=== PATIENT | female | born 1990 | race Caucasian/White ===

== ENCOUNTER 2018-06-14 04:00 | Inpatient (IN) ==
[2018-06-14] MEDS ORDERED: *HR* Nalbuphine 10 MG/ML AMPUL IVP PRN (04:19)
[2018-06-14] MEDS ORDERED: miSOPROStol 25 MCG TABLET VG PRN (04:19)
[2018-06-14] MEDS ORDERED: Naloxone 0.4 MG/ML INJ IVP PRN (04:19)
[2018-06-14] MEDS ORDERED: Famotidine 20 MG/2 ML VIAL IVP PRN (04:19)
[2018-06-14] MEDS ORDERED: Ondansetron 4 MG/2 ML VIAL IVP PRN (04:19)
[2018-06-14] MEDS ORDERED: Metoclopramide 10 MG/2 ML VIAL IVP PRN (04:19)
[2018-06-14] MEDS ORDERED: Ringers Solution, Lactated 1,000 ML IVC SCH (04:30)
[2018-06-14 04:57] LABS: Basophils # 0.1 K/mcL (0.0-0.2); Basophils % 0.4 %; Eosinophils # 0.2 K/mcL (0.0-0.6); Eosinophils % 1.4 %; Hematocrit 35.7 % (35.3-44.9); Hemoglobin 11.7 g/dL (11.5-15.4); Immature Granulocytes % 0.8 % (0-4); Lymphocytes # 2.8 K/mcL (0.6-4.6); Lymphocytes % 16.9 %; Mean Corpuscular HGB Conc 32.8 g/dL (31.6-35.5); Mean Corpuscular Hemoglobin 28.3 pg (28.0-33.3); Mean Corpuscular Volume 86.4 fL (83.0-100.0); Mean Platelet Volume 11.1 fL (9.4-12.4); Monocytes # 1.1 K/mcL (0.0-1.3); Monocytes % 6.7 %; Platelet Count 257 K/mcL (140-400); Red Blood Count 4.13 M/mcL (3.82-4.97); Red Cell Distribution Width 15.6 % (11.5-14.5); Segmented Neutrophils % 73.8 %
[2018-06-14 05:03] LABS: Amphetamine Screen,Urine Negative ng/mL (Cutoff=1000); Barbiturate Screen,Urine Negative ng/mL (Cutoff=200); Benzodiazepines Screen,Urine Negative ng/mL (Cutoff=200); Cannabinoid Screen,Urine Negative ng/mL (Cutoff = 50); Cocaine Screen,Urine Negative ng/mL (Cutoff= 300); Opiate Screen,Urine Negative ng/mL (Cutoff=300); Phencyclidine Screen,Urine Negative ng/mL (Cutoff=25)
--- NOTE | 2018-06-14 07:14 | OB/GYN History & Physical ---
Date of Encounter: 06/14/18 Time of Encounter: 07:08 Assessment and Plan (1) Elective induction of labor planned Current visit: Yes Status: Acute 27 y/o @ 39+4 weeks, GDMA 2, Genital herpes, GBS neg, A neg Plan: Vaginal exam done and free from genital herpetic lesions, will check FS Q2hrs and Q1hr if elevated, cytotec 25mcg given @ 4:39AM, ok for epidural if she desires, anticipate History of Present Illness HPI: Ms. Winters is a 27 year old female @ 39+4 weeks who presents to the office for IOL. No LOF, VB or ctxs, feels good FM. course significant for GDMA2 controlled with Metformin 500mg BID. She also has genital herpes on valtrex. GBS neg, A- s/p RhoGAM. Past Med Surg Social Fam HX - Past Medical History Medical history: no medical history, other Psychiatric history: no psych history - Past Surgical History Additional surgical history: d&c - Social History Smoking Status: Current every day smoker Smokeless Tobacco Status: No Alcohol use: none Drug use: none - Family History Mother Living Status: Still Living Hx Family Cardiac Disorders: Yes (HTN) Hx Family Respiratory Disorders: No Hx Family Cancer: No Hx Family GI Disorders: No Hx Family Genitourinary Disorders: No Hx Family Endocrine Disorder: No Hx Family Musculoskeletal Disorders: No Hx Family Neuromuscular Disorders: No Hx Family Neurologic Disorders: No Hx Family HEENT Disorders: No Hx Family Autoimmune Disorders: No Hx Family Reproductive Disorders: No Hx Family Psychosocial Disorders: No Hx Family Medical Disorders: No Obstetrical History - Pregnancies : 5 Para: 3 Medications and Allergies Metformin HCl 500 mg PO BID 06/14/18 [History] Allergy/AdvReac Type Severity Reaction Status Date / Time No Known Allergies Allergy Verified 10/09/16 19:57 Review of System OB All systems PM: reviewed and no additional remarkable complaints except as stated Exam - Vital Signs Vital signs: Initial Vital Signs Temp Pulse Resp BP 98.2 F 105 15 118/82 06/14/18 04:30 06/14/18 04:30 06/14/18 04:30 06/14/18 04:30 - Constitutional Constitutional: well developed - HEENT HEENT: PERRL - Neck Neck exam: full ROM - Lungs Respiratory exam: CTAB - Cardiovascular Cardiovascular exam: RRR - Abdomen Abdomen: Present: gravid - Cervix Dilation: 1 Effacement: 70 Results Result Diagrams: 06/14/18 04:30 Abnormal lab results WBC 16.2 K/mcL (4.3-11.1) H 06/14/18 04:30 RDW 15.6 % (11.5-14.5) H 06/14/18 04:30 Neutrophils # 12.0 K/mcL (1.6-8.9) H 06/14/18 04:30 All other labs normal. - VTE Reasons for not Prescribing Prophylaxis: Treatment not Indicated - Low risk for VTE
[2018-06-14] MEDS ORDERED: 0.9 % Sodium Chloride 1,000 ML IVC SCH (09:15)
[2018-06-14] MEDS ORDERED: Oxytocin 20 units/ LR 1000 mL 20 UNIT/1,000 ML BAG IVC SCH (09:15)
--- NOTE | 2018-06-14 09:27 | OB Labor Progress Note ---
Date of Encounter: 06/14/18 Time of Encounter: 09:27 Labor Progress Note - Subjective Subjective: patient is doing, her cytotec is due - Vital Signs Vital Signs: VSS - Cervix Cervix: 1/70% - Heart Tones Heart Tones: 145/mod/yin/+accels, no decels - [place]: Q1 - Interventions Interventions: since patient is in tachysystole, will start pitocin instead of another dose of cytotec, ok for epidural if she desires, anticipate
[2018-06-14] MEDS ORDERED: Lidocaine -MPF 1% 5 ML AMPUL ONE (16:12)
[2018-06-14] MEDS ORDERED: Epidural Premix (fent/bupiv) 110 ML EP ONE (16:14)
[2018-06-14] MEDS ORDERED: Epidural Premix (fent/bupiv) 110 ML EP SCH (16:15)
--- NOTE | 2018-06-14 16:17 | OB Labor Progress Note ---
Date of Encounter: 06/14/18 Time of Encounter: 16:15 Labor Progress Note - Subjective Subjective: Pt feeling some contractions - Cervix Cervix: 4/80/-2 - Heart Tones Heart Tones: 135/moderate/positive accelerations/negative decelerations - Plan Physician notified: Yes Physician notified details: Dr. Reynoso updated be a text message Plan: Continue current management Pitocin per policy Nubain and epidural as desired Anticipate
--- NOTE | 2018-06-14 17:07 | OB Labor Progress Note ---
Date of Encounter: 06/14/18 Time of Encounter: 17:04 Labor Progress Note - Subjective Subjective: patient is doing well s/p vaginal delivery - Vital Signs Vital Signs: VSS - Cervix Cervix: 5/80/0 - Heart Tones Heart Tones: 140/mod/yin/+accels, no decels - Icard Icard: Q 1-3 - Interventions Interventions: patient AROM'ed with blood tinged fluid, IUPC placed but shortly fell out when patient moved (it got caught around her leg), pitocin @ 14, fingersticks normal, anticipate
--- NOTE | 2018-06-14 17:10 | Anesthesia Evaluation PreOp ---
Date of Encounter: 06/14/18 Time of Encounter: 16:10 - Past History Planned Operation: FAUZIA Cardiac History: Denies any Significant Hx Pulmonary History: Denies Any Significant HX HARVESTING SUPERVISOR History: Denies Any Significant HX Other Medical History: Denies Any Significant HX Anesthesia History: No Prior Anesthetic Complications : Yes Test: Positive Alcohol Use: none Drug use: none Medications and Allergies Metformin HCl 500 mg PO BID 06/14/18 [History] Valtrex 500 mg PO DAILY 06/14/18 [History] Allergy/AdvReac Type Severity Reaction Status Date / Time No Known Allergies Allergy Verified 10/09/16 19:57 - Meds/Allergy Pre-op Review Medications Reviewed: Yes Allergies Reviewed: Yes Beta Blockers on Current Med List: No Anesthesia Results - Labs 06/14/18 04:30 Anesthesia Exam Height: 1.57 Weight: 82 NPO (# of Hours): mn Pain Scale: 4 - HEENT Pupil (Motor): Pupils equal Mallampati: II Teeth: Normal Oral Opening: Greater than 3 - HARVESTING SUPERVISOR LOC: Oriented HARVESTING SUPERVISOR Motor: Normal RUE, Normal LUE, Normal RLE, Normal LLE, Normal Face HARVESTING SUPERVISOR Sensory: Normal: RUE, LUE, RLE, LLE, Face - Cardiac Rhythm: Regular Murmur: None JVD: No Carotid Bruit: No - Pulmonary Breath Sounds: bilateral Clear Respiratory Effort: Symmetrical Anesthesia Assess/Plan ASA Score: 2 Level of consciousness: Cooperative Anesthetic Plan: Epidural Monitoring Plan: Standard Monitors
--- NOTE | 2018-06-14 17:13 | Anesthesia Procedures ---
Date of Encounter: 06/14/18 Time of Encounter: 16:10 Procedures: Anesthesia - Epidural/Spinal Patient ID/Chart reviewed: Yes Patient examined: Yes OB Eval: Gestational age: 39.4 OB Eval: : 5 OB Eval: Hx Para: 2 OB Eval: Dilated at (cm): 4 OB Eval: Contractions: Non-stressed pattern Consent Obtained: Yes Site Prep: Aseptic Technique, Sterile prep and drape, Povidone-Iodine 1% Patient position: upright Amount of Local Anesthetic used: 3 Touhy Needle Gauge: 18 Touhy Needle Depth (cm): 6 Catheter Depth at Skin (cm): 8 Test Dose (1.5% Lido + Epi): Volume given (mls): 3 Test Dose Result: Negative Infusion Rate (mls/hr): [address]: Tegaderm, Tape Interspace Used: L4-L5 Loss of Resistance (LEA): Yes Blood: No CSF: No Paresthesia: No Vitals + FHT's: stable throughout see nursing notes
--- NOTE | 2018-06-14 19:34 | OB Labor Progress Note ---
Date of Encounter: 06/14/18 Time of Encounter: 19:32 Labor Progress Note - Subjective Subjective: patient is comfortable - Vital Signs Vital Signs: VSS - Cervix Cervix: 5cm/80% - Heart Tones Heart Tones: 155/mod yin/+accels, no rec yin decels - [place]: irreg (IUPC in place) - Interventions Interventions: if yni decels become recurrent, will do amnioinfusion, anticipate , pitocin @ 22
--- NOTE | 2018-06-14 20:56 | OB Labor Progress Note ---
Date of Encounter: 06/14/18 Time of Encounter: 20:53 Labor Progress Note - Subjective Subjective: Patient is doing well - Vital Signs Vital Signs: VSS - Cervix Cervix: anterior lip/+1 - Heart Tones Heart Tones: 145/mod yin/+accels, non rec yin decels - [place]: irreg - Interventions Interventions: anticipate , amnioinfusion running
--- NOTE | 2018-06-14 21:58 | OB/GYN Procedure Note ---
Delivery - Delivery Date: 06/14/18 Provider: Brenda Reynoso Intrapartum events: none Delivery induction: misoprostol Delivery augmentation: rupture of membranes, pitocin Delivery monitor: external FHT, external uterine, internal uterine Anesthesia: epidural Quantitated Blood Loss: 200 - Repair Episiotomy: none Laceration Description: Periurethral - Complications Delivery complications: none - Disposition Mom disposition: stable in LDR disposition: stable in LDR - Comments Comments: Johanna is a 27 y/o now who delivered a viable male @ 2130hrs. delivered SHAHAB with nuchal cord x 2. Weight 3205g. Infant placed on Mom's chest before clamping and cutting the cord. Placenta delivered @ 2135hrs, EBL 20 0ml, right periurethral laceration repaired with 4-0 vicryl. Mother and infant stable.
[2018-06-15] MEDS ORDERED: Oxytocin 20 units/ LR 1000 mL 20 UNIT/1,000 ML BAG IVC SCH (00:51)
[2018-06-15] MEDS ORDERED: Measles/Mumps/Rubella Vacc 0.5 ML VIAL SQ PRN (00:51)
[2018-06-15] MEDS: Ibuprofen 600 MG TABLET PO PRN ×2 (06:49→18:25)
[2018-06-15 07:46] LABS: Basophils % 0.2 %; Eosinophils # 0.2 K/mcL (0.0-0.6); Hematocrit 33.2 % (35.3-44.9); Hemoglobin 10.8 g/dL (11.5-15.4); Immature Granulocytes % 0.8 % (0-4); Lymphocytes # 2.7 K/mcL (0.6-4.6); Lymphocytes % 16.1 %; Mean Corpuscular HGB Conc 32.5 g/dL (31.6-35.5); Mean Corpuscular Hemoglobin 28.5 pg (28.0-33.3); Mean Corpuscular Volume 87.6 fL (83.0-100.0); Mean Platelet Volume 11.2 fL (9.4-12.4); Monocytes % 5.7 %; Neutrophils # 12.6 K/mcL (1.6-8.9); Platelet Count 223 K/mcL (140-400); Red Blood Count 3.79 M/mcL (3.82-4.97); Red Cell Distribution Width 15.5 % (11.5-14.5); Segmented Neutrophils % 76.2 %
[2018-06-15] MEDS ORDERED: Prenatal Vit/FA 1 EACH TABLET PO SCH (09:00)
--- NOTE | 2018-06-15 09:30 | Discharge Summary ---
Date of Encounter: 06/15/18 Time of Encounter: 09:27 - Discharge Diagnosis (1) Vaginal delivery Priority: Primary Status: Acute Comments: Patient meeting day one milestones. Pain well-controlled with prescribed medications. Voiding without difficulty, tolerating regular diet, bleeding light. No bowel movement yet. Nexplanon and Depo-Provera offered and patient declined both prior to discharge Anticipate discharge this evening (2) Laceration of periurethral tissue with delivery Priority: Secondary Status: Acute Comments: Dermoplast, ice pack, Motrin as needed for discomfort (3) Gestational diabetes mellitus (GDM) controlled on oral hypoglycemic drug Priority: Secondary Status: Acute Comments: Patient will need a 2 hour glucose tolerance test between 4 and 12 weeks She was made aware of this need for testing and verbalizes understanding. Qualifiers: Trimester: unspecified trimester Qualified Code(s): O24.415 - Gestational diabetes mellitus in , controlled by oral hypoglycemic drugs - Discharge Medications Prescriptions: New Ibuprofen [Motrin] 600 mg PO Q6HR PRN #60 tablet PRN Reason: Cramping Docusate [Colace] 100 mg PO BID capsule Discontinued Metformin HCl 500 mg PO BID Valtrex 500 mg PO DAILY Home Medications: Docusate [Colace] 100 mg PO BID capsule 06/15/18 [Rx] Ibuprofen [Motrin] 600 mg PO Q6HR PRN #60 tablet 06/15/18 [Rx] Allergies/Adverse Reactions: Allergy/AdvReac Type Severity Reaction Status Date / Time No Known Allergies Allergy Verified 10/09/16 19:57 Data Procedures and tests throughout hospitalization: Laboratory Tests 06/14/18 06/14/18 06/14/18 04:30 04:30 04:30 WBC 16.2 H RBC 4.13 Hgb 11.7 Hct 35.7 MCV 86.4 MCH 28.3 MCHC 32.8 RDW 15.6 H Plt Count 257 MPV 11.1 Immature Gran % 0.8 Seg Neutrophils % 73.8 Lymphocytes % 16.9 Monocytes % 6.7 Eosinophils % 1.4 Basophils % 0.4 Neutrophils # 12.0 H Lymphocytes # 2.8 Monocytes # 1.1 Eosinophils # 0.2 Basophils # 0.1 POC Glucose Urine Opiates Screen Negative Ur Barbiturates Screen Negative Ur Phencyclidine Scrn Negative Ur Amphetamines Screen Negative U Benzodiazepines Scrn Negative Urine Cocaine Screen Negative U Marijuana (THC) Screen Negative Ur Drug Screen Interp See Below Hep Bs Antigen Nonreactive 06/14/18 06/14/18 06/14/18 08:13 10:09 12:22 WBC RBC Hgb Hct MCV MCH MCHC RDW Plt Count MPV Immature Gran % Seg Neutrophils % Lymphocytes % Monocytes % Eosinophils % Basophils % Neutrophils # Lymphocytes # Monocytes # Eosinophils # Basophils # POC Glucose 102 H 83 100 H Urine Opiates Screen Ur Barbiturates Screen Ur Phencyclidine Scrn Ur Amphetamines Screen U Benzodiazepines Scrn Urine Cocaine Screen U Marijuana (THC) Screen Ur Drug Screen Interp Hep Bs Antigen 06/14/18 06/14/18 06/14/18 14:14 16:25 18:28 WBC RBC Hgb Hct MCV MCH MCHC RDW Plt Count MPV Immature Gran % Seg Neutrophils % Lymphocytes % Monocytes % Eosinophils % Basophils % Neutrophils # Lymphocytes # Monocytes # Eosinophils # Basophils # POC Glucose 96 82 153 H Urine Opiates Screen Ur Barbiturates Screen Ur Phencyclidine Scrn Ur Amphetamines Screen U Benzodiazepines Scrn Urine Cocaine Screen U Marijuana (THC) Screen Ur Drug Screen Interp Hep Bs Antigen 06/14/18 06/15/18 20:33 07:24 WBC 16.6 H RBC 3.79 L Hgb 10.8 L Hct 33.2 L MCV 87.6 MCH 28.5 MCHC 32.5 RDW 15.5 H Plt Count 223 MPV 11.2 Immature Gran % 0.8 Seg Neutrophils % 76.2 Lymphocytes % 16.1 Monocytes % 5.7 Eosinophils % 1.0 Basophils % 0.2 Neutrophils # 12.6 H Lymphocytes # 2.7 Monocytes # 1.0 Eosinophils # 0.2 Basophils # 0.0 POC Glucose 72 Urine Opiates Screen Ur Barbiturates Screen Ur Phencyclidine Scrn Ur Amphetamines Screen U Benzodiazepines Scrn Urine Cocaine Screen U Marijuana (THC) Screen Ur Drug Screen Interp Hep Bs Antigen Labs on day of discharge: Labs from last 24 hours 06/15/18 06/14/18 06/14/18 07:24 20:33 18:28 WBC 16.6 H RBC 3.79 L Hgb 10.8 L Hct 33.2 L MCV 87.6 MCH 28.5 MCHC 32.5 RDW 15.5 H Plt Count 223 MPV 11.2 Immature Gran % 0.8 Seg Neutrophils % 76.2 Lymphocytes % 16.1 Monocytes % 5.7 Eosinophils % 1.0 Basophils % 0.2 Neutrophils # 12.6 H Lymphocytes # 2.7 Monocytes # 1.0 Eosinophils # 0.2 Basophils # 0.0 POC Glucose 72 153 H 06/14/18 06/14/18 06/14/18 16:25 14:14 12:22 WBC RBC Hgb Hct MCV MCH MCHC RDW Plt Count MPV Immature Gran % Seg Neutrophils % Lymphocytes % Monocytes % Eosinophils % Basophils % Neutrophils # Lymphocytes # Monocytes # Eosinophils # Basophils # POC Glucose 82 96 100 H 06/14/18 06/14/18 10:09 08:13 WBC RBC Hgb Hct MCV MCH MCHC RDW Plt Count MPV Immature Gran % Seg Neutrophils % Lymphocytes % Monocytes % Eosinophils % Basophils % Neutrophils # Lymphocytes # Monocytes # Eosinophils # Basophils # POC Glucose 83 102 H Date of admission: 06/14/18 04:12 Primary care physician: Amy Quiroz CNP Consults: 06/15/18 00:51 Consult to Neurodiagnostic Technician [CONS] Routine Comment: Vaginal delivery, consult needed Discharging clinician: Lydia iWllard Anticipated date of discharge: 06/15/18 - Patient Status Disposition: Home, Self-Care Condition: Good Functional capacity at discharge: independent ambulation Overall status at discharge: patient is progressing back to baseline - Discharge Instructions Follow Up With: Amy Quiroz CNP [Primary Care Provider] - - Diet and Activity Activity: resume usual activities as tolerated Diet: regular diet Hospital Course Reason for admission: induction of labor Delivery: Episiotomy: none Laceration: other (periurethral) Other procedures: none complications: none Discharge diagnosis: IUP at term delivered [place] baby: male Time Attestation: Total time spent providing and/or coordinating discharge services: Time Spent: Less than 30 minutes Exam - Constitutional Vitals: Temp Pulse Resp BP Pulse Ox 98.3 F 68 14 118/79 94 06/15/18 09:02 06/15/18 09:02 06/15/18 09:02 06/15/18 09:02 06/15/18 02:45 General appearance IM: A&O X 3, pleasant, no acute distress, answers questions appropriately - Respiratory Respiratory exam: Present: CTAB - Cardiovascular Cardiovascular exam IM: Present: RRR, +S1, +S2 - GI/Abdominal GI/Abdominal exam IM: soft - Rectal Rectal exam: deferred - External exam: normal external exam Uterine Tone: Firm Uterus Position: At Umbilicus, Midline - Extremities Exam Extremities exam IM: Present: full ROM, normal capillary refill, normal inspection - Neurological Exam Neurological exam: alert, normal gait, oriented X3
[2018-06-15] MEDS ORDERED: Rho Immune Globulin 1,500 UNIT SYRINGE IM ONE (16:04)
[2018-06-15] MEDS ORDERED: Benzocaine/Menthol 56 GM AEROSOL SPRAY TP ONE (20:25)
[2018-06-15 21:10] VITALS: BP 116/76
== END 2018-06-15 22:54 | disposition home or self-care (01) | DRG 560 ==
LOC: 1NENULAB 04:12 → 1NENUOBS 06-15 00:57
PROVIDERS: ADMIT Student in an Organized Health Care Education/Training Program; ATTEND Student in an Organized Health Care Education/Training Program

== ENCOUNTER 2018-12-13 06:15 | Observation (INO) ==
[2018-12-13] MEDS ORDERED: 0.9 % Sodium Chloride 1,000 ML IVC ONE (07:03)
[2018-12-13] MEDS ORDERED: Ketorolac 30 MG/ML VIAL IVP ONE (07:03)
[2018-12-13] MEDS ORDERED: Ondansetron ODT 4 MG TAB.RAPDIS SL ONE (07:03)
[2018-12-13 07:23] LABS: Basophils # 0.1 K/mcL (0.0-0.2); Basophils % 0.6 %; Bilirubin,Urine Small (Negative); Blood,Urine Moderate (Negative); Clarity,Urine Clear (Clear); Color,Urine Dark Yellow (Yellow); Eosinophils # 0.5 K/mcL (0.0-0.6); Eosinophils % 3.8 %; Glucose,Urine (UA) Normal (Normal); Hematocrit 34.4 % (35.3-44.9); Hemoglobin 10.9 g/dL (11.5-15.4); Immature Granulocytes % 0.5 % (0-4); Ketones,Urine Negative (Negative); Leukocyte Esterase,Urine Negative (Negative); Lymphocytes # 2.3 K/mcL (0.6-4.6); Lymphocytes % 19.9 %; Mean Corpuscular HGB Conc 31.7 g/dL (31.6-35.5); Mean Corpuscular Hemoglobin 25.3 pg (28.0-33.3); Mean Platelet Volume 10.1 fL (9.4-12.4); Monocytes # 0.7 K/mcL (0.0-1.3); Monocytes % 5.5 %; Neutrophils # 8.2 K/mcL (1.6-8.9); Nitrite,Urine Negative (Negative); Platelet Count 373 K/mcL (140-400); Protein,Urine Trace mg/dL (Neg-Trace); Red Cell Distribution Width 15.9 % (11.5-14.5); Segmented Neutrophils % 69.7 %; Specific Gravity,Urine > 1.030 (1.010-1.025); Urobilinogen,Urine Normal (Normal); White Blood Count 11.7 K/mcL (4.3-11.1)
[2018-12-13 07:44] LABS: Alanine Aminotransferase 12 Units/L (7-52); Albumin 4.3 g/dL (3.5-5.7); Albumin/Globulin Ratio 1.7 (1.1-2.2); Alkaline Phosphatase 73 Units/L (34-104); Aspartate Amino Transferase 10 Units/L (13-39); BUN/Creatinine Ratio 21 (6-26); Bilirubin,Direct 0.1 mg/dL (0.0-0.2); Bilirubin,Indirect 0.1 mg/dL (0.0-1.2); Bilirubin,Total 0.2 mg/dL (0.3-1.0); Blood Urea Nitrogen 17 mg/dL (6-20); Calcium 9.1 mg/dL (8.6-10.3); Carbon Dioxide 23 mEq/L (23-29); Chloride 108 mEq/L (98-107); Globulin 2.6 g/dL (2.4-3.5); Glucose 121 mg/dL (70-105); Lipase 18 Units/L (11-82); Osmolality,Calculated 285 (280-300); Potassium 3.8 mEq/L (3.5-5.1); Sodium 136 mEq/L (136-145); Total Protein 6.9 g/dL (6.4-8.9); eGFR For African Americans > 60 (> 60); eGFR For Non-African Americans > 60 (> 60)
[2018-12-13 07:46] LABS: Bacteria,Urine Moderate per hpf (None-Few); Mucus,Urine Few (Few); RBC,Urine 30-50 per hpf (0-3); Squamous Epithelial Cell,Urine Moderate per lpf (None-Few); WBC,Urine 0-3 per hpf (0-3)
[2018-12-13] MEDS ORDERED: *HR* FentaNYL (PF) 100 MCG/2 ML VIAL ONE ×2 (14:40→15:37)
[2018-12-13] MEDS ORDERED: *HR* Midazolam HCl 2 MG/2 ML VIAL ONE (14:40)
[2018-12-13] MEDS ORDERED: *HR* Propofol 200 MG/20 ML VIAL IVP ONE (14:41)
[2018-12-13] MEDS ORDERED: *HR* Succinylcholine 200 MG/10 ML VIAL IVP ONE (14:44)
[2018-12-13] MEDS ORDERED: *HR* Rocuronium Bromide 50 MG/5 ML VIAL ONE (14:44)
[2018-12-13] MEDS ORDERED: Lidocaine HCL 4 ML Topical Solution (Laryng-O-Jet Kit Sterile Pak) TP ONE (14:45)
[2018-12-13] MEDS ORDERED: Albuterol 2.5 MG/3 ML NEBULIZER IH ONE (14:50)
[2018-12-13] MEDS ORDERED: *HR* HYDROmorphone (PF) 1 MG/ML SYRINGE IVP PRN (14:51)
[2018-12-13] MEDS ORDERED: *HR* Promethazine 25 MG/ML VIAL IVP PRN (14:51)
[2018-12-13] MEDS ORDERED: Ondansetron 4 MG/2 ML VIAL IVP ONE (14:51)
[2018-12-13] MEDS ORDERED: *HR* OxyCODONE Immed Rel 5 MG TABLET PO PRN (14:51)
[2018-12-13] MEDS ORDERED: ceFAZolin 2,000 MG in Water for inj. (sterile) 20 ML IVP ONE (14:55)
[2018-12-13] MEDS ORDERED: Ondansetron 4 MG/2 ML VIAL ONE (14:56)
[2018-12-13] MEDS ORDERED: Dexamethasone 4 MG/ML VIAL ONE (14:56)
[2018-12-13] MEDS ORDERED: Neostigmine Methylsulfate 3 MG/3 ML SYRINGE ONE (15:34)
[2018-12-13] MEDS ORDERED: Ketorolac 30 MG/ML VIAL ONE (15:41)
[2018-12-13] MEDS ORDERED: *HR* HYDROMORPHONE 2 MG/ML VIAL ONE (15:42)
[2018-12-13] MEDS ORDERED: *HR* OxyCODONE/APAP 5/325 TABLET PO PRN (17:09)
[2018-12-13] MEDS ORDERED: Ketorolac 15 MG/ML VIAL IVP SCH (18:00)
[2018-12-13 18:34] VITALS: BP 126/85
== END 2018-12-13 18:51 | disposition home or self-care (01) ==
LOC: EMEROOARM 06:15 → 3ANU 06:15
PROVIDERS: ADMIT Surgery; ATTEND Surgery

== ENCOUNTER 2019-10-17 15:41 | Observation (INO) | END 2019-10-17 18:00 | disposition home or self-care (01) | LOC: 1NENULAB | PROVIDERS: ADMIT Obstetrics & Gynecology; ATTEND Obstetrics & Gynecology ==

== ENCOUNTER 2019-10-24 16:00 | Observation (INO) | END 2019-10-24 16:10 | disposition home or self-care (01) | LOC: 1NENULAB | PROVIDERS: ADMIT Obstetrics & Gynecology; ATTEND Obstetrics & Gynecology ==

== ENCOUNTER 2019-11-18 09:03 | Inpatient (IN) ==
[2019-11-18] MEDS ORDERED: Lidocaine 1% 20 ML MDV INFILT PRN (09:24)
[2019-11-18] MEDS ORDERED: Metoclopramide 10 MG/2 ML VIAL IVP PRN (09:24)
[2019-11-18] MEDS ORDERED: Ondansetron 4 MG/2 ML VIAL IVP PRN (09:24)
[2019-11-18] MEDS ORDERED: Naloxone 0.4 MG/ML INJ IVP PRN (09:24)
[2019-11-18] MEDS ORDERED: *HR* FentaNYL (PF) 100 MCG/2 ML VIAL IVP PRN (09:24)
[2019-11-18] MEDS ORDERED: Azithromycin 500 MG in 0.9 % Sodium Chloride 250 ML IVPB ONE (09:24)
[2019-11-18] MEDS ORDERED: Famotidine 20 MG/2 ML VIAL IVP PRN (09:24)
[2019-11-18] MEDS ORDERED: miSOPROStoL 25 MCG TABLET PO PRN (09:27)
[2019-11-18] MEDS ORDERED: Ringers Solution, Lactated 1,000 ML IVC SCH (09:30)
[2019-11-18 09:42] LABS: Basophils % 0.3 %; Eosinophils # 0.1 K/mcL (0.0-0.6); Eosinophils % 0.8 %; Hematocrit 38.1 % (35.3-44.9); Hemoglobin 12.9 g/dL (11.5-15.4); Immature Granulocytes % 0.8 % (0-4); Lymphocytes # 1.7 K/mcL (0.6-4.6); Lymphocytes % 13.4 %; Mean Corpuscular HGB Conc 33.9 g/dL (31.6-35.5); Mean Corpuscular Hemoglobin 31.5 pg (28.0-33.3); Mean Corpuscular Volume 93.2 fL (83.0-100.0); Mean Platelet Volume 10.6 fL (9.4-12.4); Monocytes # 0.7 K/mcL (0.0-1.3); Monocytes % 5.1 %; Neutrophils # 10.3 K/mcL (1.6-8.9); Platelet Count 214 K/mcL (140-400); Red Blood Count 4.09 M/mcL (3.82-4.97); Red Cell Distribution Width 13.4 % (11.5-14.5); Segmented Neutrophils % 79.6 %; White Blood Count 12.9 K/mcL (4.3-11.1)
[2019-11-18 10:04] LABS: Amphetamine Screen,Urine Negative ng/mL (Cutoff=1000); Barbiturate Screen,Urine Negative ng/mL (Cutoff=200); Benzodiazepines Screen,Urine Negative ng/mL (Cutoff=200); Cannabinoid Screen,Urine Negative ng/mL (Cutoff = 50); Cocaine Screen,Urine Negative ng/mL (Cutoff= 300); Opiate Screen,Urine Negative ng/mL (Cutoff=300); Phencyclidine Screen,Urine Negative ng/mL (Cutoff=25)
[2019-11-18] MEDS ORDERED: EPHEDrine 50 MG/ML VIAL IVP PRN (11:32)
[2019-11-18] MEDS ORDERED: Epidural Premix (fent/bupiv) 110 ML EP SCH (11:45)
[2019-11-18] MEDS ORDERED: Oxytocin 20 units/ LR 1000 mL 20 UNIT/1,000 ML BAG IVC SCH ×2 (14:15→18:30)
[2019-11-18] MEDS ORDERED: Rho Immune Globulin 1,500 UNIT SYRINGE IM PRN (18:19)
[2019-11-18] MEDS ORDERED: Measles/Mumps/Rubella Vacc 0.5 ML VIAL SQ PRN (18:19)
[2019-11-18] MEDS ORDERED: Acetaminophen 325 MG TABLET PO PRN (18:19)
[2019-11-19] MEDS: Ibuprofen 600 MG TABLET PO PRN ×2 (02:16→08:51)
[2019-11-19 05:07] LABS: Basophils # 0.1 K/mcL (0.0-0.2); Basophils % 0.4 %; Eosinophils # 0.1 K/mcL (0.0-0.6); Hematocrit 35.5 % (35.3-44.9); Hemoglobin 11.9 g/dL (11.5-15.4); Immature Granulocytes % 0.9 % (0-4); Lymphocytes # 2.1 K/mcL (0.6-4.6); Lymphocytes % 16.7 %; Mean Corpuscular HGB Conc 33.5 g/dL (31.6-35.5); Mean Corpuscular Hemoglobin 32.1 pg (28.0-33.3); Mean Corpuscular Volume 95.7 fL (83.0-100.0); Mean Platelet Volume 10.7 fL (9.4-12.4); Monocytes # 0.8 K/mcL (0.0-1.3); Neutrophils # 9.6 K/mcL (1.6-8.9); Platelet Count 198 K/mcL (140-400); Red Blood Count 3.71 M/mcL (3.82-4.97); Red Cell Distribution Width 13.4 % (11.5-14.5); White Blood Count 12.7 K/mcL (4.3-11.1)
[2019-11-19] MEDS ORDERED: Prenatal Vit/FA 1 EACH TABLET PO SCH (09:00)
[2019-11-19 16:02] VITALS: BP 119/79
== END 2019-11-19 19:07 | disposition home or self-care (01) | DRG 560 ==
LOC: 1NENULAB 09:03 → 1NENUOBS 19:55
PROVIDERS: ADMIT Student in an Organized Health Care Education/Training Program; ATTEND Student in an Organized Health Care Education/Training Program

== ENCOUNTER 2021-07-01 07:59 | Inpatient (IN) ==
[2021-07-01] MEDS ORDERED: Famotidine 20 MG/2 ML VIAL IVP PRN (08:10)
[2021-07-01] MEDS ORDERED: Metoclopramide 10 MG/2 ML VIAL IVP PRN ×2 (08:10→18:29)
[2021-07-01] MEDS ORDERED: miSOPROStoL 25 MCG TABLET PO PRN (08:10)
[2021-07-01] MEDS ORDERED: Naloxone 0.4 MG/ML INJ IVP PRN ×2 (08:10→14:33)
[2021-07-01] MEDS ORDERED: *HR* Nalbuphine 10 MG/ML AMPUL IV PRN (08:10)
[2021-07-01] MEDS ORDERED: Ondansetron 4 MG/2 ML VIAL IVP PRN ×3 (08:16→18:29)
[2021-07-01] MEDS ORDERED: Lidocaine -MPF 1% 5 ML AMPUL INFILT PRN (08:16)
[2021-07-01 08:51] LABS: Basophils # 0.1 K/mcL (0.0-0.2); Basophils % 0.4 %; Eosinophils # 0.2 K/mcL (0.0-0.6); Eosinophils % 1.7 %; Hematocrit 34.1 % (35.3-44.9); Hemoglobin 11.3 g/dL (11.5-15.4); Immature Granulocytes % 0.8 % (0-4); Lymphocytes # 2.2 K/mcL (0.6-4.6); Lymphocytes % 15.1 %; Mean Corpuscular HGB Conc 33.1 g/dL (31.6-35.5); Mean Corpuscular Volume 81.4 fL (83.0-100.0); Monocytes # 0.8 K/mcL (0.0-1.3); Monocytes % 5.5 %; Neutrophils # 10.9 K/mcL (1.6-8.9); Platelet Count 260 K/mcL (140-400); Red Blood Count 4.19 M/mcL (3.82-4.97); Red Cell Distribution Width 16.1 % (11.5-14.5); Segmented Neutrophils % 76.5 %; White Blood Count 14.2 K/mcL (4.3-11.1)
[2021-07-01] MEDS: Ringers Solution, Lactated 1,000 ML IVC SCH ×2 (09:00→14:10)
[2021-07-01 09:44] LABS: Influenza A PCR Negative (Negative); Influenza B PCR Negative (Negative); Resp. Syncytial Virus PCR Negative (Negative)
[2021-07-01 10:15] LABS: Amphetamine Screen,Urine Negative ng/mL (Cutoff=1000); Barbiturate Screen,Urine Negative ng/mL (Cutoff=200); Benzodiazepines Screen,Urine Negative ng/mL (Cutoff=200); Cannabinoid Screen,Urine Negative ng/mL (Cutoff = 50); Cocaine Screen,Urine Negative ng/mL (Cutoff= 300); Opiate Screen,Urine Negative ng/mL (Cutoff=300); Phencyclidine Screen,Urine Negative ng/mL (Cutoff=25)
[2021-07-01 10:47] LABS: SARS-CoV-2 by PCR (In House) Negative (Negative)
[2021-07-01] MEDS ORDERED: Oxytocin 30 UNIT/503 ML BAG IVC SCH (12:15)
[2021-07-01] MEDS ORDERED: Epidural Premix (fent/bupiv) 110 ML EP ONE (14:01)
[2021-07-01] MEDS ORDERED: Ropivacaine/PF 0.2% 20 ML VIAL ONE (14:05)
[2021-07-01] MEDS ORDERED: Ropivacaine/PF 0.2% 20 ML VIAL EP ONE (14:33)
[2021-07-01] MEDS ORDERED: EPHEDrine 50 MG/ML VIAL IVP PRN (14:33)
[2021-07-01] MEDS ORDERED: Epidural Premix (fent/bupiv) 110 ML EP SCH (14:45)
[2021-07-01] MEDS ORDERED: *HR* FentaNYL (PF) 100 MCG/2 ML VIAL ONE (15:01)
[2021-07-01] MEDS ORDERED: *HR* Succinylcholine 200 MG/10 ML VIAL IVP ONE (15:03)
[2021-07-01] MEDS ORDERED: Acetaminophen IV 1,000 MG/100 ML BAG IVPB ONE (15:03)
[2021-07-01] MEDS ORDERED: Ketorolac 30 MG/ML VIAL ONE (15:04)
[2021-07-01] MEDS ORDERED: *HR* Morphine Sulfate/PF 10 MG/10 ML AMPUL ONE (15:22)
[2021-07-01] MEDS ORDERED: Ondansetron 4 MG/2 ML VIAL ONE (15:23)
[2021-07-01] MEDS ORDERED: *HR* HYDROMORPHONE 2 MG/ML VIAL ONE (15:32)
[2021-07-01] MEDS ORDERED: Rho Immune Globulin 1,500 UNIT SYRINGE IM ONE (18:29)
[2021-07-01] MEDS ORDERED: *HR* OxyCODONE Immed Rel 5 MG TABLET PO PRN (18:29)
[2021-07-01] MEDS ORDERED: Ringers Solution, Lactated 1,000 ML IVC SCH (18:29)
[2021-07-01] MEDS: Acetaminophen 325 MG TABLET PO SCH (20:46)
[2021-07-01] MEDS: cephALEXin 500 MG CAPSULE PO SCH (20:47)
[2021-07-01] MEDS: Ibuprofen 600 MG TABLET PO SCH (20:47)
[2021-07-01] MEDS: metroNIDAZOLE 500 MG TABLET PO SCH (20:47)
[2021-07-02 03:59] LABS: Basophils % 0.2 %; Eosinophils % 0.1 %; Hematocrit 26.4 % (35.3-44.9); Immature Granulocytes % 0.6 % (0-4); Lymphocytes # 1.4 K/mcL (0.6-4.6); Lymphocytes % 7.4 %; Mean Corpuscular HGB Conc 32.2 g/dL (31.6-35.5); Mean Corpuscular Hemoglobin 26.3 pg (28.0-33.3); Mean Corpuscular Volume 81.7 fL (83.0-100.0); Mean Platelet Volume 11.1 fL (9.4-12.4); Monocytes # 0.7 K/mcL (0.0-1.3); Monocytes % 3.7 %; Neutrophils # 16.8 K/mcL (1.6-8.9); Platelet Count 267 K/mcL (140-400); Red Blood Count 3.23 M/mcL (3.82-4.97); White Blood Count 19.1 K/mcL (4.3-11.1)
[2021-07-02 04:00] LABS: Hemoglobin 8.5 g/dL (11.5-15.4)
[2021-07-02] MEDS: Prenatal Vit/FA 1 EACH TABLET PO SCH (07:55)
[2021-07-02] MEDS: Ibuprofen 600 MG TABLET PO SCH ×2 (07:55→15:02)
[2021-07-02] MEDS: metroNIDAZOLE 500 MG TABLET PO SCH ×3 (07:56→20:21)
[2021-07-02] MEDS: Acetaminophen 325 MG TABLET PO SCH ×2 (07:56→15:02)
[2021-07-02] MEDS: cephALEXin 500 MG CAPSULE PO SCH ×3 (07:56→20:20)
[2021-07-02] MEDS: Famotidine 20 MG TABLET PO SCH (07:56)
[2021-07-02 19:50] VITALS: BP 127/76; PULSE 85; TEMP 98.2; O2SAT 100
[2021-07-02] MEDS: Simethicone 80 MG TAB.CHEW PO PRN (20:24)
[2021-07-03] MEDS: Acetaminophen 325 MG TABLET PO SCH ×2 (03:13→09:12)
[2021-07-03] MEDS: Ibuprofen 600 MG TABLET PO SCH ×2 (03:13→09:11)
[2021-07-03] MEDS: cephALEXin 500 MG CAPSULE PO SCH (08:13)
[2021-07-03] MEDS: Famotidine 20 MG TABLET PO SCH (08:14)
[2021-07-03] MEDS: Prenatal Vit/FA 1 EACH TABLET PO SCH (08:14)
[2021-07-03] MEDS: Simethicone 80 MG TAB.CHEW PO PRN (08:14)
[2021-07-03] MEDS: metroNIDAZOLE 500 MG TABLET PO SCH (08:14)
== END 2021-07-03 10:46 | disposition home or self-care (01) | DRG 539 ==
LOC: 1NENULAB 07:59 → 1NENUOBS 18:30
PROVIDERS: ADMIT Student in an Organized Health Care Education/Training Program; ATTEND Student in an Organized Health Care Education/Training Program